=== PATIENT | female | born 1985 | race Two or more races ===

== ENCOUNTER 2025-10-24 14:05 | Emergency (ER) | payer SELFPAY ==
[2025-10-24] MEDS ORDERED: Lidocaine 4% Topical Sol 50 ML BOT ONE (14:56)
== END 2025-10-24 15:16 | disposition home or self-care (01) ==
LOC: NAV ERS 14:05
DX: K04.4 Acute apical periodontitis of pulpal origin (principal); K02.9 Dental caries, unspecified; F17.210 Nicotine dependence, cigarettes, uncomplicated
CPT/HCPCS: 64400; J3490